=== PATIENT | female | born 1995 | race Caucasian/White ===

== ENCOUNTER 2020-06-02 06:24 | Inpatient (IN) | payer OTHER, MEDICAID, SELFPAY ==
[2020-06-02] VITALS (272 sets, daily range): BP systolic 101–158; BP diastolic 54–92; PULSE 75–138; TEMP 36.5–37.3; O2SAT 79–100; BMI 30.2
--- NOTE | 2020-06-02 06:24 | LDADM ---
This patient, Rhonda Yoder, was admitted to Labor/Delivery/Recovery 101 on 06/02/20 at 06:24. Plans for labor, pain management and were discussed with patient. Patient/family oriented to hospital policies and general routines including ID bracelet, bed and alarms, visiting hours, pain management, procedures, bathroom and other care routines, personal items, smoking policy, room service/diet and guest tray routines, security routines, and visiting hours. Patient/Family are encouraged to report perceived risks to care and to ask questions if they do not understand what they are told or what they should do. See OBIX for further documentation.
[2020-06-02 07:17] LABS: Basophils Percent Auto 0.3 % (0.2-1.2); Eosinophils Absolute Auto 0.1 K/mm3 (0-0.3); Eosinophils Percent Auto 0.9 % (0-4.4); Hematocrit 34.9 % (37.0-47.0); Hemoglobin 11.7 g/dL (12.0-15.0); Immature Granulocyte Percent A 0.9 % (0-0.5); Lymphocytes Absolute Auto 1.66 K/mm3 (0.9-3.2); Lymphocytes Percent Auto 15.2 % (18.3-44.2); Mean Corpuscular HGB Conc 33.5 g/dl (32-36); Mean Corpuscular Hemoglobin 30.8 pg (26-34); Mean Corpuscular Volume 91.8 fl (80-100); Mean Platelet Volume 10.1 fl (7.4-10.4); Monocytes Absolute Auto 0.7 K/mm3 (0.1-0.6); Monocytes Percent Auto 6.8 % (2.6-8.5); Neutrophils Absolute Auto 8.3 K/mm3 (1.3-6.7); Neutrophils Percent Auto 75.9 % (45.5-73.1); Platelet Count Result 210 k/mm3 (150-375); White Blood Count 10.9 K/mm3 (4.5-10.0)
[2020-06-02] MEDS: OXYTOCIN 30 UNITS/NS 500 ML 30 UNITS/500 ML BAG IV CONT (07:20)
[2020-06-02] MEDS: LACTATED RINGERS 1,000 ML 125 ML IV CONT ×4 (07:20→23:02)
--- NOTE | 2020-06-02 08:49 | WPDOBADMIT ---
Obstetrics - Admit Note Admission Note: record reviewed. Additions to the history and/or subsequent changes in the physical findings follow. 24 y/o at 39 2/7 weeks here for induction of labor. AVSS NST reactive TOCO: irregular contractions ABD soft, nontender, gravid, vertex EXT nontender Cervix 2-3/50/-2. A: IUP at term with favorable cervix, desiring induction of labor. P: Oxytocin. Anticipate .
--- NOTE | 2020-06-02 10:33 | WPDANESEPP ---
Anes - Eval Pre Procedure Procedure: Labor Epidural Date/Time: 06/02/20 10:33 Surgeon: Ruth Preop Diagnosis: Labor Pain Pre Op Diagnosis: Induction of Labor Patient Data Age: 24 Gender: F Height: 5 ft 6 in Weight: 85 kg Last Vital Signs Temp 36.8 C 06/02/20 08:45 Pulse 84 06/02/20 10:31 BP 134/68 06/02/20 10:31 Pulse Ox 100 06/02/20 10:33 Allergies Allergy/AdvReac Type Severity Reaction Status Date / Time amoxicillin Allergy Intermediate Rash Verified 06/02/20 07:48 clavulanic acid Allergy Intermediate Rash Verified 06/02/20 07:48 nitrofurantoin Allergy Intermediate Rash Verified 06/02/20 07:48 Sulfa (Sulfonamide Allergy Intermediate Rash Verified 06/02/20 07:48 Antibiotics) Home Medications Medication Instructions Recorded Confirmed Type PNV cmb#95-ferrous fumarate-FA 1 tablet PO DAILY 05/07/20 06/02/20 History [] Laboratory Tests 06/02/20 06/02/20 06/02/20 07:10 07:10 07:10 WBC 10.9 K/mm3 H K/mm3 (4.5-10.0) RBC 3.80 M/mm3 L M/mm3 (4.2-5.4) Hgb 11.7 g/dL L g/dL (12.0-15.0) Hct 34.9 % L % (37.0-47.0) MCV 91.8 fl fl (80-100) MCH 30.8 pg pg (26-34) MCHC 33.5 g/dl g/dl (32-36) RDW 13.0 % % (11.5-14.5) Plt Count 210 k/mm3 k/mm3 (150-375) MPV 10.1 fl fl (7.4-10.4) Immature Gran % (Auto) 0.9 % H % (0-0.5) Neut % (Auto) 75.9 % H % (45.5-73.1) Lymph % (Auto) 15.2 % L % (18.3-44.2) [place] % (Auto) 6.8 % % (2.6-8.5) Eos % (Auto) 0.9 % % (0-4.4) Baso % (Auto) 0.3 % % (0.2-1.2) Lymph # (Auto) 1.66 K/mm3 K/mm3 (0.9-3.2) [place] # (Auto) 0.7 K/mm3 H K/mm3 (0.1-0.6) Eos # (Auto) 0.1 K/mm3 K/mm3 (0-0.3) Baso # (Auto) 0.0 K/mm3 K/mm3 (0.0-0.1) Abs Immat Gran (auto) 0.10 K/mm3 H K/mm3 (0.00-0.031) Absolute Neuts (auto) 8.3 K/mm3 H K/mm3 (1.3-6.7) Absolute Nucleated RBC 0.0 K/mm3 K/mm3 (0.0-0.012) Nucleated RBC % 0.0 % % (0.0-0.2) RPR Pending Blood Type A Positive Antibody Screen Negative : gestational age (LEISA 06/07/20, G 2 P 1) Patient hx anesthesia problems: none Family hx anesthesia problems: none [facility] Family History Family History Mother Diabetes mellitus Father Hypertension Social History Social History Smoking status: Never smoker Substance use: never Gender identity (if verbalized by the patient): Female Spiritual care concerns: No Exam Day of Procedure 06/02/20 10:33 Patient weight: normal Heart: regular rate and rhythm Lungs: normal air movement Airway: Mallampati scale class II Neurological: alert and oriented
[2020-06-02 10:53] LABS: Rapid Plasma Reagin Non-Reactive (NonReactive)
[2020-06-02 11:36] LABS: Barbiturate Screen Urine Negative (Negative); Benzodiazepines Screen Urine Negative (Negative)
[2020-06-02 11:40] LABS: Amphetamine Screen Urine Negative (Negative); Cocaine Screen Urine Negative (Negative); Methadone Screen Urine Negative (Negative); Opiate Screen Urine Negative (Negative); Phencyclidine Screen Urine Negative (Negative)
[2020-06-02 11:51] LABS: Cannabinoid Screen Urine Negative (Negative)
--- NOTE | 2020-06-02 12:21 | PM.OBPNLAB ---
Pain Control Date/time seen: 06/02/20 12:21 Comments: Feeling some pain relief with epidural. Pelvic Exam Dilation (cm): 3 Effacement (%): 50 station: -2 Contractions Monitor mode: Internal Contraction frequency: 3 Contraction pattern: Regular Status status: Category l Assessment and Plan Comments: Continue labor.
--- NOTE | 2020-06-02 16:50 | PM.OBPNLAB ---
Pain Control Date/time seen: 06/02/20 16:50 Comments: More comfortable now. Pelvic Exam Dilation (cm): 4 Effacement (%): 50 station: -2 Contractions Monitor mode: Internal Contraction frequency: 3 Contraction pattern: Regular Status status: Category l Assessment and Plan Comments: Continue labor.
[2020-06-02] MEDS: ONDANSETRON INJ 4 MG/2 ML VIAL IV PUSH ×2 (18:01→23:02)
[2020-06-03] VITALS (29 sets, daily range): BP systolic 99–149; BP diastolic 52–89; PULSE 80–126; RESP 16–20; TEMP 36.7–37.2; O2SAT 92–100
--- NOTE | 2020-06-03 01:05 | P.PCNOB_ITS ---
OB - Delivery Note Procedure Delivery date: 06/03/20 Procedure: Induction of labor with Induction method: per pitocin protocol Delivery monitor: external FHT, external uterine and internal uterine Route of delivery: Specimen: Yes (cord blood) Estimated blood loss (mL): 80 Anesthesia type: Epidural Disposition: PACU Complications: None Narrative: 24 y/o at 39 3/7 weeks gestation who presented to the [facility] for induction of labor. Oxytocin was administered intravenously. Amniotomy was performed with return of clear fluid. She received an epidural for pain control. Her labor progressed and her cervix dilated completely. She pushed with good effort and delivered the 's head to the perineum, followed by the body. The nose and mouth were bulb suctioned. After a delay, the cord was clamped and cut. The infant was handed off the field. Cord blood was collected. The placenta delivered spontaneously and was grossly normal in appearance. The usual 3 vessel cord was noted. The perineum was intact. Needle and instrument counts were correct. The patient was taken to recovery room in stable condition. The infant went to the nursery in stable condition. I was present and scrubbed for the entire delivery. Baby Date of : 06/03/20 Time of : 00:54 Weeks of gestation at delivery: 39 gender: Male Weight (pounds): 6 Weight (ounces): 2 presentation: vertex position: Right Occiput Anterior Placenta delivery description: Spontaneous and Normal Configuration cord vessel description: 3 Vessels score one minute: 9 score five minutes: 9
--- NOTE | 2020-06-03 01:08 | PM.OBDSVD ---
DS: Admitting Diagnosis Admitting Diagnosis Admitting Diagnosis: Induction of Labor DS: Discharge Diagnosis Discharge Diagnosis (1) (normal spontaneous vaginal delivery): Code(s): O80 - Encounter for full-term uncomplicated delivery Status: Acute OB - DS: Summary OB Procedures : None OB Procedures Intrapartum: Spontaneous Vag Delivery OB Procedures: : None DS: Data Data Completed and Pending Labs on day of discharge: Labs from last 24 hours 06/02/20 06/02/20 06/02/20 11:11 07:10 07:10 WBC RBC Hgb Hct MCV MCH MCHC RDW Plt Count MPV Immature Gran % (Auto) Neut % (Auto) Lymph % (Auto) [place] % (Auto) Eos % (Auto) Baso % (Auto) Lymph # (Auto) [place] # (Auto) Eos # (Auto) Baso # (Auto) Abs Immat Gran (auto) Absolute Neuts (auto) Absolute Nucleated RBC Nucleated RBC % Urine Opiates Screen Negative Urine Methadone Screen Negative Ur Barbiturates Screen Negative Ur Phencyclidine Scrn Negative Ur Amphetamine Screen Negative U Benzodiazepines Scrn Negative Urine Cocaine Screen Negative U Cannabinoids Screen Negative RPR Non-reactive Blood Type A Positive Antibody Screen Negative 06/02/20 07:10 WBC 10.9 H RBC 3.80 L Hgb 11.7 L Hct 34.9 L MCV 91.8 MCH 30.8 MCHC 33.5 RDW 13.0 Plt Count 210 MPV 10.1 Immature Gran % (Auto) 0.9 H Neut % (Auto) 75.9 H Lymph % (Auto) 15.2 L [place] % (Auto) 6.8 Eos % (Auto) 0.9 Baso % (Auto) 0.3 Lymph # (Auto) 1.66 [place] # (Auto) 0.7 H Eos # (Auto) 0.1 Baso # (Auto) 0.0 Abs Immat Gran (auto) 0.10 H Absolute Neuts (auto) 8.3 H Absolute Nucleated RBC 0.0 Nucleated RBC % 0.0 Urine Opiates Screen Urine Methadone Screen Ur Barbiturates Screen Ur Phencyclidine Scrn Ur Amphetamine Screen U Benzodiazepines Scrn Urine Cocaine Screen U Cannabinoids Screen RPR Blood Type Antibody Screen Discharge Plan Discharge Attending physician on discharge: Lisandro Miranda Discharging Clinician: Lisandro Miranda Patient Disposition: Home, Self-Care Activity: pelvic rest Diet: regular Discharge Instructions: Education: Mom and Baby Guide Given to: Mother Follow-Up: Call your delivering provider's office for an appointment to be seen in: 6 Weeks Mom and baby should come to the [facility] for the follow-up appointment. Appointment Date/Time: June 05, 2020 at 10:00 am What to expect at your follow-up visit: Blood Pressure Check Call [phone] if you are unable to keep your appointment time. BREAST CARE: * Wear a snug supportive bra. * For engorgement discomfort: Bottle Feeding: * May apply ice pack PERINEAL CARE: * Until bleeding stops, use your mello bottle after urinating * Change your pad frequently throughout the day * You may take sitz baths several times a day (fill your bathtub with warm water and soak for 20 minutes.) Do NOT bathe in the water * No tub baths until seen by your physician - You may shower ACTIVITY: * Rest as much as possible. * Do not exercise or lift anything heavier than your baby (such as laundry or other children.) * Avoid stairs or driving as much as possible. * Do not put anything into the vagina. No douching, tampons, or sexual activity until seen by physician. NOTIFY PHYSICIAN IF YOU HAVE ANY QUESTIONS OR IF ANY OF THE FOLLOWING SYMPTOMS OCCUR: * If your perineum becomes red, swollen, or more painful than what you have experienced in the hospital. * If your vaginal bleeding becomes foul smelling. * If your vaginal bleeding becomes more heavy than a period or if your bleeding changes from pink to bright red. However, you may pass an occasional walnut-sized clot once or twice for the first week . * If you experience a sharp, shooting pain in you calves. * If you discover a hard, red
[2020-06-03] MEDS: OXYTOCIN 30 UNITS/NS 500 ML 30 UNITS/500 ML BAG 125 UNITS IV CONT (01:27)
[2020-06-03] MEDS: BENZOCAINE 20% AER SPR (*SP) 56 GM CAN 1 SPRAY TOPICAL (02:49)
[2020-06-03] MEDS: IBUPROFEN 600 MG TABLET PO ×3 (02:49→17:47)
[2020-06-03] MEDS: WITCH HAZEL 40 PADS 1 PAD TOPICAL (02:49)
--- NOTE | 2020-06-03 03:30 | OBPPTRN ---
Patient transferred to post room # 279 via wheelchair. Support person and present. Oriented to unit, room, information board, rooming in, admission packet and security measures. Patient verbalizes understanding.
[2020-06-03] MEDS: ACETAMINOPHEN 325 MG TABLET 650 MG PO ×3 (05:31→17:48)
--- NOTE | 2020-06-03 08:00 | PC.NURSE ---
PT introductions made and plan of care discussed per post , pain management, bottle feeding, daily care activities. PT verbalized understanding of such care.
--- NOTE | 2020-06-03 09:52 | WPDANLDPN2 ---
Anes-Prog Note L&D Date/Time: 06/03/20 09:52 Comfortable throughout: labor and delivery Neuraxial method: epidural Epidural/Spinal procedure site: clean & non-tender Neuro status: Neuro function grossly intact. Cardiovascular status: normal Respiratory status: normal Airway patency: baseline Mental status: baseline Post-Op hydration status: normal Vital Signs: Last Vital Signs Temp 36.8 C 06/03/20 07:45 Pulse 80 06/03/20 07:45 Resp 16 06/03/20 07:45 BP 120/70 06/03/20 07:45 Pulse Ox 98 06/03/20 07:45 Pain score (VAS): 0 I/O: Intake & Output 06/02/20 06/03/20 06/03/20 23:59 07:59 15:59 Intake Total 2000 Output Total 230 Balance 1999 -230 Post-procedural complaints: none Patient feedback: Patient satisfied with anesthetic care.
[2020-06-03] MEDS: DOCUSATE SODIUM 100 MG CAPSULE PO ×2 (09:53→17:47)
[2020-06-04] MEDS: ACETAMINOPHEN 325 MG TABLET 650 MG PO ×2 (05:01→10:05)
[2020-06-04] MEDS: IBUPROFEN 600 MG TABLET PO (05:02)
[2020-06-04 05:30] LABS: Hematocrit 31.2 % (37.0-47.0); Hemoglobin 10.4 g/dL (12.0-15.0)
--- NOTE | 2020-06-04 07:00 | PC.NURSE ---
PT introductions made and plan of care discussed per post , pain management, bottle feeding, daily care activities and pending discharge to home> PT verbalized understanding of such care.
[2020-06-04 07:45] VITALS: BP 119/79; PULSE 74; RESP 18; TEMP 36.7; O2SAT 100
--- NOTE | 2020-06-04 07:57 | WPDANLDPN2 ---
Anes-Prog Note L&D Date/Time: 06/04/20 07:57 Comfortable throughout: labor and delivery Neuraxial method: epidural Epidural/Spinal procedure site: clean & non-tender Neuro status: Neuro function grossly intact. Cardiovascular status: normal Respiratory status: normal Airway patency: baseline Mental status: baseline Post-Op hydration status: normal Vital Signs: Last Vital Signs Temp 36.7 C 06/03/20 20:00 Pulse 85 06/03/20 20:00 Resp 20 06/03/20 20:00 BP 108/65 06/03/20 20:00 Pulse Ox 98 06/03/20 20:00 Pain score (VAS): 0 Post-procedural complaints: none Patient feedback: Patient satisfied with anesthetic care.
[2020-06-04] MEDS: DOCUSATE SODIUM 100 MG CAPSULE PO (10:06)
[2020-06-04] MEDS: MULTIVIT/MIN/PREN/FOL AC/IRON TABLET 1 TAB PO (10:06)
[2020-06-04 10:10] VITALS: PULSE 74; RESP 18; O2SAT 100
--- NOTE | 2020-06-04 11:27 | PC.NURSE ---
Patient viewed the discharge video Mother & Baby Care, The First Two Weeks . Patient was given the opportunity and encouraged to ask questions. Patient verbalized understanding of information shared and has been given the mother/baby guide for home reference.
--- NOTE | 2020-06-04 13:07 | PM.OBPNVD ---
OB - PN: Subj Subjective Date/time seen: 06/04/20 13:07 Narrative: Pain OK. Would like to go home. Would like circumcision for son. OB - PN: Obj Data Labs CBC & Chem 7: 06/04/20 05:00 Labs: Laboratory Results - last 24 hr 06/04/20 05:00 Hgb 10.4 L Hct 31.2 L OB - PN A/P Plan Comments: A: PPD#1, doing well. P: Home to f/u 6 weeks. Reviewed circumcision. Exam Psych: Other: AVSS ABD soft, nontender, fundus firm EXT nontender
--- NOTE | 2020-06-04 14:30 | PC.NURSE ---
PT received discharge instructions per protocol and verbalized understanding of such instructions.
--- NOTE | 2020-06-04 14:55 | PC.NURSE ---
Pt discharged to home ambulatory accompanied by spouse and to waiting car. Follow up appts confirmed
[2020-06-05 10:10] VITALS: BP 123/82; PULSE 82; RESP 14
== END 2020-06-04 14:55 | disposition home or self-care (01) | DRG 807 ==
LOC: ANHLDR 06-03 01:09 → ANHOB2 06-03 03:37
PROVIDERS: Admitting Provider Obstetrics & Gynecology; PCP Nurse Practitioner Family; Visit Provider Obstetrics & Gynecology
DX: O76 Abnormality in fetal heart rate and rhythm complicating labor and delivery (principal); Z37.0 Single live birth; Z3A.39 39 weeks gestation of pregnancy
CPT/HCPCS: 36415; 80307; 85014; 85018; 85025; 86592; 86850; 86900; 86901; A9270; J2405; J2590; J2795; J7120

== ENCOUNTER 2023-01-09 15:49 | Outpatient (RCR) | payer OTHER, SELFPAY ==
[2023-01-09 16:18] LABS: Hematocrit 36.1 % (37.0-47.0); Mean Corpuscular HGB Conc 33.2 g/dl (32-36); Mean Corpuscular Hemoglobin 31.3 pg (26-34); Mean Platelet Volume 10.6 fl (7.4-10.4); Platelet Count Result 212 k/mm3 (150-375); Red Blood Count 3.84 M/mm3 (4.2-5.4); White Blood Count 11.2 K/mm3 (4.5-10.0)
[2023-01-09 16:28] LABS: Alanine Aminotransferase 19 U/L (6-35); Albumin Level 3.5 g/dL (3.5-5.1); Alkaline Phosphatase 101 U/L (38-126); Anion Gap 3 mmol/L (8-16); Aspartate Amino Transferase 23 U/L (14-36); Bilirubin,Total 0.9 mg/dL (0.2-1.3); Blood Urea Nitrogen 7 mg/dL (7-17); Carbon Dioxide 27 mmol/L (22-30); Chloride 103 mmol/L (98-107); Estimated Glomerular Filt Rate > 60; Glucose 80 mg/dL (65-110); Potassium 3.8 mmol/L (3.4-5.0); Sodium 133 mmol/L (137-145)
[2023-01-09 16:42] VITALS: BP 131/81; PULSE 95
== END 2023-02-27 12:43 | disposition home or self-care (01) ==
LOC: ANHOBOP 15:49
PROVIDERS: PCP Nurse Practitioner Family; Visit Provider Obstetrics & Gynecology
DX: O36.8130 Decreased fetal movements, third trimester, not applicable or unspecified (principal); Z3A.37 37 weeks gestation of pregnancy
CPT/HCPCS: 36415; 59025; 80053; 85027

== ENCOUNTER 2023-01-12 08:08 | Observation (INO) | payer OTHER, SELFPAY ==
[2023-01-12] VITALS (13 sets, daily range): BP systolic 133–147; BP diastolic 81–98; PULSE 90–146; BMI 29.9
--- NOTE | 2023-01-12 08:08 | OBADM ---
This patient, Rhonda Yoder, admitted to the OB room Labor/Delivery/Recovery 106 for observation. Patient/family oriented to hospital policies and general routines including ID bracelet, bed and alarms, visiting hours, pain management, procedures, bathroom and other care routines, personal items, smoking policy, room service/diet, and visiting hours. Patient/Family are encouraged to report perceived risks to care and to ask questions if they do not understand what they are told or what they should do.
[2023-01-12 10:18] LABS: Basophils Percent Auto 0.3 % (0.2-1.2); Eosinophils Percent Auto 0.2 % (0-4.4); Hematocrit 37.6 % (37.0-47.0); Hemoglobin 12.6 g/dL (12.0-15.0); Immature Granulocyte Absolute 0.11 K/mm3 (0.00-0.031); Immature Granulocyte Percent A 0.7 % (0-0.5); Lymphocytes Absolute Auto 1.54 K/mm3 (0.9-3.2); Lymphocytes Percent Auto 10.2 % (18.3-44.2); Mean Corpuscular HGB Conc 33.5 g/dl (32-36); Mean Corpuscular Hemoglobin 31.2 pg (26-34); Mean Corpuscular Volume 93.1 fl (80-100); Mean Platelet Volume 10.6 fl (7.4-10.4); Monocytes Absolute Auto 0.8 K/mm3 (0.1-0.6); Monocytes Percent Auto 5.5 % (2.6-8.5); Neutrophils Absolute Auto 12.5 K/mm3 (1.3-6.7); Neutrophils Percent Auto 83.1 % (45.5-73.1); Platelet Count Result 235 k/mm3 (150-375); Red Blood Count 4.04 M/mm3 (4.2-5.4); White Blood Count 15.1 K/mm3 (4.5-10.0)
[2023-01-12 10:37] LABS: Alanine Aminotransferase 19 U/L (6-35); Albumin Level 3.8 g/dL (3.5-5.1); Alkaline Phosphatase 117 U/L (38-126); Anion Gap 4 mmol/L (8-16); Aspartate Amino Transferase 21 U/L (14-36); Bilirubin,Total 0.9 mg/dL (0.2-1.3); Blood Urea Nitrogen 6 mg/dL (7-17); Calcium 8.8 mg/dL (8.4-10.2); Carbon Dioxide 23 mmol/L (22-30); Chloride 104 mmol/L (98-107); Estimated Glomerular Filt Rate > 60; Glucose 83 mg/dL (65-110); Potassium 4.4 mmol/L (3.4-5.0); Sodium 131 mmol/L (137-145); Uric Acid 3.2 mg/dL (2.5-7.5)
[2023-01-12 10:52] LABS: Creatinine Urine 183.9 mg/dL; Total Protein Urine Random 21 mg/dL; Ur Ttl Prot Creatinine Ratio 0.11 mg/mg (0-0.20)
[2023-01-12 10:57] LABS: Appearance Urine Cloudy (Clear); Bacteria Urine 1+ /hpf; Bilirubin Urine Negative (Negative); Blood Urine Negative (Negative); Calcium Oxalate Crystals Urine Present /hpf; Color Urine Dark Yellow (Yellow); Glucose Urine UA Trace mg/dL (Negative); Ketones Urine Negative (Negative); Leukocyte Esterase Ur 1+ LEU/UL (NEGATIVE); Mucus Urine Present /lpf; Nitrate Urine Negative (Negative); Non Pathogenic Casts 0-2; Protein Urine 1+ mg/dL (Negative); Specific Grav Ur 1.021 (1.001-1.035); Squamous Epithelial Cell Urine Many /hpf (Few); WBC Urine 0-5 /hpf (0-3)
[2023-01-12 11:01] LABS: Add Urine Microscopic? YES
--- NOTE | 2023-01-14 10:26 | P.PNOB_ITS ---
OB - Triage/Final Diagnosis Visit Information Comments/Additional reasons for admission: I have assessed the risk for this patient, Rhonda Yoder, and determined that she would benefit from observation care. Evaluation Laboratory results: Laboratory Tests 01/12/23 09:59 WBC 15.1 H RBC 4.04 L Hgb 12.6 Hct 37.6 MCV 93.1 MCH 31.2 MCHC 33.5 RDW 13.0 Plt Count 235 MPV 10.6 H Immature Gran % (Auto) 0.7 H Neut % (Auto) 83.1 H Lymph % (Auto) 10.2 L [place] % (Auto) 5.5 Eos % (Auto) 0.2 Baso % (Auto) 0.3 Lymph # (Auto) 1.54 [place] # (Auto) 0.8 H Eos # (Auto) 0.0 Baso # (Auto) 0.0 Abs Immat Gran (auto) 0.11 H Absolute Neuts (auto) 12.5 H Absolute Nucleated RBC 0.0 Nucleated RBC % 0.0 Sodium 131 L Potassium 4.4 Chloride 104 Carbon Dioxide 23 Anion Gap 4 L BUN 6 L Creatinine 0.40 L Estim Creat Clear Calc Not Reportable Estimated GFR > 60 Glucose 83 Uric Acid 3.2 Calcium 8.8 Total Bilirubin 0.9 AST 21 ALT 19 Alkaline Phosphatase 117 Total Protein 7.0 Albumin 3.8 Urine Color Dark yellow Urine Appearance Cloudy H Urine pH 6.0 Ur Specific [place] 1.021 Urine Protein 1+ H Urine Glucose (UA) Trace H Urine Ketones Negative Ur Blood (Man) Negative Urine Nitrate Negative Urine Bilirubin Negative Urine Urobilinogen 1.0 Ur Leukocyte Esterase 1+ H Urine RBC 3-5 H Urine WBC 0-5 Ur Squamous Epith Cells Many H Calcium Oxalate Crystal Present Urine Bacteria 1+ H Urine Casts 0-2 Urine Mucus Present U Random Total Protein 21 Urine Creatinine 183.9 Protein/Creat Ratio 2 0.11 Final Diagnosis (1) Cramping affecting , antepartum: Code(s): O26.899 - Other specified related conditions, unspecified trimester; R10.9 - Unspecified abdominal pain Status: Acute
== END 2023-01-12 11:45 | disposition home or self-care (01) ==
PROVIDERS: Admitting Provider Obstetrics & Gynecology; PCP Nurse Practitioner Family; Visit Provider Obstetrics & Gynecology
DX: O26.893 Other specified pregnancy related conditions, third trimester (principal); R10.9 Unspecified abdominal pain; Z3A.37 37 weeks gestation of pregnancy
CPT/HCPCS: 36415; 80053; 81001; 82570; 84156; 84550; 85025; 87086; 87088; G0378; G0379

== ENCOUNTER 2023-01-18 05:52 | Inpatient (IN) | payer OTHER, SELFPAY ==
[2023-01-18] VITALS (185 sets, daily range): BP systolic 88–156; BP diastolic 51–123; PULSE 78–146; RESP 18; TEMP 36.4–37.1; O2SAT 92–100; BMI 29.9
[2023-01-18 06:27] LABS: Basophils Percent Auto 0.4 % (0.2-1.2); Eosinophils Absolute Auto 0.2 K/mm3 (0-0.3); Eosinophils Percent Auto 1.3 % (0-4.4); Hematocrit 35.9 % (37.0-47.0); Hemoglobin 12.3 g/dL (12.0-15.0); Immature Granulocyte Absolute 0.09 K/mm3 (0.00-0.031); Immature Granulocyte Percent A 0.8 % (0-0.5); Lymphocytes Absolute Auto 2.03 K/mm3 (0.9-3.2); Lymphocytes Percent Auto 17.8 % (18.3-44.2); Mean Corpuscular HGB Conc 34.3 g/dl (32-36); Mean Corpuscular Hemoglobin 31.4 pg (26-34); Mean Corpuscular Volume 91.6 fl (80-100); Mean Platelet Volume 10.1 fl (7.4-10.4); Monocytes Absolute Auto 0.8 K/mm3 (0.1-0.6); Monocytes Percent Auto 7.1 % (2.6-8.5); Neutrophils Absolute Auto 8.3 K/mm3 (1.3-6.7); Neutrophils Percent Auto 72.6 % (45.5-73.1); Platelet Count Result 220 k/mm3 (150-375); Red Blood Count 3.92 M/mm3 (4.2-5.4); Red Cell Distribution Width 12.9 % (11.5-14.5); White Blood Count 11.4 K/mm3 (4.5-10.0)
[2023-01-18 06:37] LABS: Alanine Aminotransferase 22 U/L (6-35); Albumin Level 3.7 g/dL (3.5-5.1); Alkaline Phosphatase 115 U/L (38-126); Anion Gap 8 mmol/L (8-16); Aspartate Amino Transferase 29 U/L (14-36); Blood Urea Nitrogen 7 mg/dL (7-17); Calcium 8.8 mg/dL (8.4-10.2); Carbon Dioxide 21 mmol/L (22-30); Chloride 103 mmol/L (98-107); Estimated Glomerular Filt Rate > 60; Glucose 116 mg/dL (65-110); Potassium 3.4 mmol/L (3.4-5.0); Sodium 132 mmol/L (137-145)
[2023-01-18] MEDS: LACTATED RINGERS 1,000 ML 125 ML IV CONT ×2 (06:38→10:43)
[2023-01-18] MEDS: OXYTOCIN 30 UNITS/NS 500 ML 30 UNITS/500 ML BAG IV CONT (06:39)
--- NOTE | 2023-01-18 06:44 | LDADM ---
This patient, Rhonda Yoder, was admitted to Labor/Delivery/Recovery 107 on 01/18/23 at 05:52. Plans for labor, pain management and were discussed with patient. Patient/family oriented to hospital policies and general routines including ID bracelet, bed and alarms, visiting hours, pain management, procedures, bathroom and other care routines, personal items, smoking policy, room service/diet and guest tray routines, infant security routines, and visiting hours. Patient/Family are encouraged to report perceived risks to care and to ask questions if they do not understand what they are told or what they should do. See OBIX for further documentation.
[2023-01-18 07:11] LABS: Rapid Plasma Reagin Non-Reactive (NonReactive)
--- NOTE | 2023-01-18 08:59 | WPDOBADMIT ---
Obstetrics - Admit Note Admission Note: record reviewed. Additions to the history and/or subsequent changes in the physical findings follow. 27 y/o at 38 2/7 weeks here for induction of labor because of gestational hypertension. No headache or abdominal pain, no visual field change. Has had pruritis for weeks with normal bile acids. Good movement. GBS neg. AVSS NST reactive TOCO: irregular contractions ABD Soft, nontender, gravid, vertex EXT nontender Cervix 3-4/50/-2. AROM with clear fluid. Vertex. A: IUP at term with gestational HTN. P: Reviewed risks, benefits, alternatives to induction of labor and she elects to proceed. Oxytocin. Anticipate .
--- NOTE | 2023-01-18 11:16 | WPDANESEPPF ---
Anes - Initial Pre Proc Eval Procedure: labor epidural Date/Time: 01/18/23 11:16 Surgeon: Lisandro Miranda MD Pre Op Diagnosis: labor pain Pre Op Diagnosis: IOL Patient Data Age: 27 Gender: F Height: 1.68 m Weight: 84 kg Last Vital Signs Temp 36.5 C 01/18/23 10:00 Pulse 86 01/18/23 11:13 BP 135/72 01/18/23 11:13 Pulse Ox 100 01/18/23 11:15 O2 Del Method Room Air 01/18/23 06:43 Allergies Allergy/AdvReac Type Severity Reaction Status Date / Time amoxicillin Allergy Intermediate Rash Verified 01/18/23 06:51 clavulanic acid Allergy Intermediate Rash Verified 01/18/23 06:51 Sulfa (Sulfonamide Allergy Intermediate Rash Verified 01/18/23 06:51 Antibiotics) Home Medications Medication Instructions Recorded Confirmed Type vit no.95-ferrous 1 tablet PO DAILY 05/07/20 01/18/23 History fumarate 28 mg-folic acid 800 mcg tablet () acetaminophen 325 mg tablet (Mapap 650 mg PO Q6H PRN Mild Pain (1-3) 06/04/20 01/18/23 Rx (acetaminophen)) Or Headache ondansetron HCl 4 mg tablet 4 mg PO DAILY PRN Nausea 01/02/23 01/18/23 History sertraline 100 mg tablet (Zoloft) 100 mg PO DAILY 01/02/23 01/18/23 History Laboratory Tests 01/18/23 06:07 WBC 11.4 H K/mm3 (4.5-10.0) RBC 3.92 L M/mm3 (4.2-5.4) Hgb 12.3 g/dL (12.0-15.0) Hct 35.9 L % (37.0-47.0) MCV 91.6 fl (80-100) MCH 31.4 pg (26-34) MCHC 34.3 g/dl (32-36) RDW 12.9 % (11.5-14.5) Plt Count 220 k/mm3 (150-375) MPV 10.1 fl (7.4-10.4) Immature Gran % (Auto) 0.8 H % (0-0.5) Neut % (Auto) 72.6 % (45.5-73.1) Lymph % (Auto) 17.8 L % (18.3-44.2) [place] % (Auto) 7.1 % (2.6-8.5) Eos % (Auto) 1.3 % (0-4.4) Baso % (Auto) 0.4 % (0.2-1.2) Lymph # (Auto) 2.03 K/mm3 (0.9-3.2) [place] # (Auto) 0.8 H K/mm3 (0.1-0.6) Eos # (Auto) 0.2 K/mm3 (0-0.3) Baso # (Auto) 0.0 K/mm3 (0.0-0.1) Abs Immat Gran (auto) 0.09 H K/mm3 (0.00-0.031) Absolute Neuts (auto) 8.3 H K/mm3 (1.3-6.7) Absolute Nucleated RBC 0.0 K/mm3 (0.0-0.012) Nucleated RBC % 0.0 % (0.0-0.2) Sodium 132 L mmol/L (137-145) Potassium 3.4 mmol/L (3.4-5.0) Chloride 103 mmol/L (98-107) Carbon Dioxide 21 L mmol/L (22-30) Anion Gap 8 mmol/L (8-16) BUN 7 mg/dL (7-17) Creatinine 0.40 L mg/dL (0.7-1.0) Estim Creat Clear Calc Not Reportable Estimated GFR > 60 (59 - ) Glucose 116 H mg/dL (65-110) Calcium 8.8 mg/dL (8.4-10.2) Total Bilirubin 1.0 mg/dL (0.2-1.3) AST 29 U/L (14-36) ALT 22 U/L (6-35) Alkaline Phosphatase 115 U/L (38-126) Total Protein 7.0 g/dL (6.3-8.2) Albumin 3.7 g/dL (3.5-5.1) RPR Non-reactive (NonReactive) Blood Type A Positive Antibody Screen Negative Patient hx anesthesia problems: none Family hx anesthesia problems: none Results Review: All pre-operative results and documents have been reviewed as part of the pre-operative evaluation. [facility] Family History Family History Mother Diabetes mellitus Father Hypertension Social History Social History Smoking status: Never smoker Second hand tobacco smoke exposure: No Substance use: never Lack of Transportation: No Lack of Food: Never True Current Housing: I Have Housing Concerned About Future Housing: No Difficulty Paying Gas/Electric Bills: No Difficulty Paying for Meds: No Currently Unemployed: No Education: Associate Degree Difficulty w/ Childcare or Family Care: No Gender identity (if verbalized by the patient): Female Spiritual care concerns: No Anes - Eval Final PreProcedure Day of Procedure 01/18/23 11:16 Patient weight: overweight ASA classification: II Anesthetic plan: proceed Anesthesia type a
--- NOTE | 2023-01-18 12:55 | PM.OBPNLAB ---
Pain Control Date/time seen: 01/18/23 12:55 Comments: Comfortable with epidural Pelvic Exam Dilation (cm): 4 Effacement (%): 80 station: -2 Contractions Contraction frequency: 3 Contraction pattern: Regular Status status: Category l Comments: IUPC placed. Assessment and Plan Comments: Continue labor.
[2023-01-18] MEDS: ACETAMINOPHEN 500 MG TABLET 1000 MG PO (15:43)
--- NOTE | 2023-01-18 16:32 | PM.OBPNLAB ---
Pain Control Date/time seen: 01/18/23 16:32 Comments: Comfortable with epidural Pelvic Exam Dilation (cm): 10 Effacement (%): 100 station: +1 Contractions Contraction frequency: 3 Contraction pattern: Regular Status status: Category l Assessment and Plan Comments: Begin pushing
--- NOTE | 2023-01-18 16:55 | PM.OBPRVD ---
OB - Delivery Note Procedure Delivery date: 01/18/23 Procedure: Induction of labor with Events: Gestational Hypertension Induction method: Per Pitocin Protocol Delivery augmentation: Rupture of Membranes Delivery monitor: External FHT, External Uterine and Internal Uterine Route of delivery: Laceration Description: None Specimen: Yes (cord blood, placenta) Quantitative Blood Loss (ml): 60 Anesthesia type: Epidural Disposition: PACU Complications: None Narrative: 27 y/o at 38 2/7 weeks gestation who presented to the hospital for induction of labor. Oxytocin was administered intravenously. Amniotomy was performed with return of clear fluid. She received an epidural for pain control. Her labor progressed and her cervix dilated completely. She pushed with good effort and delivered the 's head to the perineum, followed by the body. The nose and mouth were bulb suctioned. After a delay, the cord was clamped and cut. The infant was handed off the field. Cord blood was collected. The placenta delivered spontaneously and was grossly normal in appearance. The usual 3 vessel cord was noted. There were no lacerations. Needle and instrument counts were correct. The patient was taken to recovery room in stable condition. The went to the nursery in stable condition. I was present and scrubbed for the entire delivery. Baby Date of : 01/18/23 Time of : 16:42 Weeks of gestation at delivery: 38 gender: Male Weight (pounds): 6 Weight (ounces): 2 presentation: vertex position: Right Occiput Anterior Placenta delivery description: Spontaneous and Normal Configuration Cord Vessel Description: 3 Vessels and Delayed Cord Clamping score one minute: 8 score five minutes: 8
--- NOTE | 2023-01-18 16:58 | PM.OBDSVD ---
DS: Admitting Diagnosis Discharge Date 01/20/23 Admitting Diagnosis IUP at 38 2/7 weeks Gestational hypertension DS: Discharge Diagnosis Discharge Diagnosis (1) Gestational hypertension: Qualifiers: Trimester: third trimester Qualified Code(s): O13.3 - Gestational [-induced] hypertension without significant proteinuria, third trimester Code(s): O13.9 - Gestational [-induced] hypertension without significant proteinuria, unspecified trimester Status: Acute (2) (normal spontaneous vaginal delivery): Code(s): O80 - Encounter for full-term uncomplicated delivery Status: Acute OB - DS: Summary OB Procedures : None OB Procedures Intrapartum: Spontaneous Vag Delivery OB Procedures: : None Time Spent with Patient Time attestation: Total time spent providing and/or coordinating discharge services: DS: Data Data Completed and Pending Labs on day of discharge: Labs from last 24 hours 01/18/23 06:07 WBC 11.4 H RBC 3.92 L Hgb 12.3 Hct 35.9 L MCV 91.6 MCH 31.4 MCHC 34.3 RDW 12.9 Plt Count 220 MPV 10.1 Immature Gran % (Auto) 0.8 H Neut % (Auto) 72.6 Lymph % (Auto) 17.8 L [place] % (Auto) 7.1 Eos % (Auto) 1.3 Baso % (Auto) 0.4 Lymph # (Auto) 2.03 [place] # (Auto) 0.8 H Eos # (Auto) 0.2 Baso # (Auto) 0.0 Abs Immat Gran (auto) 0.09 H Absolute Neuts (auto) 8.3 H Absolute Nucleated RBC 0.0 Nucleated RBC % 0.0 Sodium 132 L Potassium 3.4 Chloride 103 Carbon Dioxide 21 L Anion Gap 8 BUN 7 Creatinine 0.40 L Estim Creat Clear Calc Not Reportable Estimated GFR > 60 Glucose 116 H Calcium 8.8 Total Bilirubin 1.0 AST 29 ALT 22 Alkaline Phosphatase 115 Total Protein 7.0 Albumin 3.7 RPR Non-reactive Blood Type A Positive Antibody Screen Negative Discharge Plan Discharge Attending physician on discharge: Lisandro Miranda Consulting providers: Braulio Laguna; Yahir Leon; Néstor Pierce Discharging Clinician: Lisandro Miranda Patient Disposition: Home, Self-Care Activity: pelvic rest Diet: regular Discharge Instructions: Call or return if temperature above 100.4? F, increased abdominal pain, increased vaginal bleeding or any new problems. Education: Mom and Baby Guide Given to: Mother Follow-Up: Call your delivering provider's office for an appointment to be seen in: 6 Weeks Mom and baby should come to the [facility] for the follow-up appointment. Appointment Date/Time: January 21, 2023 at 10:00 am What to expect at your follow-up visit: Blood Pressure Check Physical Assessment Call [phone] if you are unable to keep your appointment time. BREAST CARE: * Wear a snug supportive bra. * For engorgement discomfort: Bottle Feeding: * May apply ice packs EPISIOTOMY/PERINEAL CARE: * Until bleeding stops, use your mello bottle after urinating * Change your pad frequently throughout the day * You may take sitz baths several times a day (fill your bathtub with warm water and soak for 20 minutes.) Do NOT bathe in the water * No tub baths until seen by your physician - You may shower ACTIVITY: * Rest as much as possible. * Do not exercise or lift anything heavier than your baby (such as laundry or other children.) * Avoid stairs or driving as much as possible. * Do not put anything into the vagina. No douching, tampons, or sexual activity until seen by physician. NOTIFY PHYSICIAN IF YOU HAVE ANY QUESTIONS OR IF ANY OF THE FOLLOWING SYMPTOMS OCCUR: * If your episiotomy or incision becomes red, swollen, or more painful than what you have experienced in the hospital. * If your vaginal bleeding becomes foul smelling. * If your vaginal bleeding becomes more heavy than a period or if your bleeding changes from pink to bright red. However, you may pass an occasional walnut-sized clot once or twice for the first we
[2023-01-18] MEDS: OXYTOCIN 30 UNITS/NS 500 ML 30 UNITS/500 ML BAG 125 UNITS IV CONT (17:08)
[2023-01-18] MEDS: ONDANSETRON INJ 4 MG/2 ML VIAL IV PUSH (17:24)
[2023-01-18] MEDS: IBUPROFEN 600 MG TABLET PO (21:33)
[2023-01-18] MEDS: ACETAMINOPHEN 325 MG TABLET 650 MG PO (23:41)
[2023-01-19 03:45] VITALS: BP 123/82; PULSE 73; RESP 16; TEMP 36.4; O2SAT 99
[2023-01-19] MEDS: IBUPROFEN 600 MG TABLET PO ×3 (03:46→23:19)
[2023-01-19 05:07] LABS: Hemoglobin 11.7 g/dL (12.0-15.0)
[2023-01-19 07:40] VITALS: BP 133/83; PULSE 78; RESP 16; TEMP 36.4; O2SAT 99
--- NOTE | 2023-01-19 07:44 | WPDANLDPN2 ---
Anes-Prog Note L&D Date/Time: 01/19/23 07:44 Comfortable throughout: labor and delivery Neuraxial method: epidural Epidural/Spinal procedure site: clean & non-tender Neuro status: Neuro function grossly intact. Cardiovascular status: normal Respiratory status: normal Airway patency: baseline Mental status: baseline Post-Op hydration status: normal Vital Signs: Last Vital Signs Temp 36.4 C 01/19/23 03:45 Pulse 73 01/19/23 03:45 Resp 16 01/19/23 03:45 BP 123/82 01/19/23 03:45 Pulse Ox 99 01/19/23 03:45 O2 Del Method Room Air 01/19/23 03:45 Pain score (VAS): 1 I/O: Intake & Output 01/18/23 01/18/23 01/19/23 15:59 23:59 07:59 Intake Total 1000 500 Output Total 110 Balance 1000 390 Post-procedural complaints: none Patient feedback: Patient satisfied with anesthetic care.
[2023-01-19] MEDS: DOCUSATE SODIUM 100 MG CAPSULE PO ×2 (07:51→16:21)
[2023-01-19] MEDS: MULTIVIT/MIN/PREN/FOL AC/IRON TABLET 1 TAB PO (07:51)
[2023-01-19] MEDS: SERTRALINE HCL 50 MG TABLET 100 MG PO (07:51)
[2023-01-19] MEDS: ACETAMINOPHEN 325 MG TABLET 650 MG PO ×2 (07:52→23:18)
--- NOTE | 2023-01-19 08:54 | PM.OBPNVD ---
OB - PN: Subj Subjective Date/time seen: 01/19/23 08:54 Narrative: Pain OK. Would like circumcision for son. OB - PN: Obj Data Labs 01/19/23 03:47 01/18/23 06:07 Labs: Laboratory Results - last 24 hr 01/19/23 03:47 Hgb 11.7 L Hct 36.0 L OB - PN A/P Plan Comments: A: PPD#1, doing well. P: Routine care. Reviewed circ. Exam Psych: Other: AVSS ABD soft, nontender, fundus firm EXT nontender
[2023-01-19 12:00] VITALS: BP 146/88
[2023-01-19 16:15] VITALS: BP 146/86; PULSE 86; RESP 16; TEMP 37; O2SAT 98
[2023-01-19 19:25] VITALS: BP 126/86; PULSE 88; RESP 16; TEMP 36.4; O2SAT 99
[2023-01-20 05:00] VITALS: BP 128/82; PULSE 71; RESP 16; O2SAT 99
--- NOTE | 2023-01-20 06:51 | PM.OBPNVD ---
OB - PN: Subj Subjective Date/time seen: 01/20/23 06:51 Patient comments: no complaints and pain well controlled baby status: doing well OB - PN: Obj Data Labs 01/19/23 03:47 01/18/23 06:07 OB - PN A/P Plan day: 2 Plan: routine care, discharge home and follow up 6 weeks Time Spent With Patient Time: Total time spent is greater than 50% in coordination of care (as documented) at patient's floor/unit and/or counseling patient: Time with patient: less than 15 minutes Exam Const: General: cooperative, healthy appearing and comfortable Nutritional Appearance: average body habitus Orientation/consciousness: oriented to person, oriented to place and oriented to time Resp: Effort & Inspection: normal respiratory effort GI: Inspection: normal to inspection ( fundus firm below umbilicus)
[2023-01-20 07:25] VITALS: BP 132/95; PULSE 87; RESP 18; TEMP 36.8; O2SAT 98
[2023-01-20] MEDS: SERTRALINE HCL 50 MG TABLET 100 MG PO (09:23)
[2023-01-20] MEDS: MULTIVIT/MIN/PREN/FOL AC/IRON TABLET 1 TAB PO (09:23)
[2023-01-20] MEDS: IBUPROFEN 600 MG TABLET PO (09:23)
[2023-01-20] MEDS: ACETAMINOPHEN 325 MG TABLET 650 MG PO (09:24)
[2023-01-21 10:22] VITALS: BP 129/85; PULSE 78; RESP 18; TEMP 36.8; O2SAT 99
== END 2023-01-20 10:30 | disposition home or self-care (01) | DRG 807 ==
LOC: ANHLDR 17:00 → ANHOB2 20:56
PROVIDERS: Admitting Provider Obstetrics & Gynecology; PCP Nurse Practitioner Family; Visit Provider Obstetrics & Gynecology
DX: O13.4 Gestational [pregnancy-induced] hypertension without significant proteinuria, complicating childbirth (principal); Z37.0 Single live birth; Z3A.38 38 weeks gestation of pregnancy; O62.3 Precipitate labor; O26.893 Other specified pregnancy related conditions, third trimester; L29.9 Pruritus, unspecified
CPT/HCPCS: 36415; 80053; 85014; 85018; 85025; 86592; 86850; 86900; 86901; 88307; A9270; J2405; J2590; J2795; J7120